=== PATIENT | female | born 1935 | race Caucasian/White ===

== ENCOUNTER → 2018-05-15 | Outpatient (CLI) | payer MEDICARE, OTHER ==
[~2018-05-15] MED LIST: PROHANCE 279.3MG/ML 15ML VIAL (A9576) As Ordered
== END ==
LOC: M RAD 13:05
DX: H81.49 Vertigo of central origin, unspecified ear (principal); R51 Headache; G93.9 Disorder of brain, unspecified; G31.9 Degenerative disease of nervous system, unspecified
CPT/HCPCS: A9576